=== PATIENT | female | born 1985 | race African-American/Black ===

== ENCOUNTER 2016-10-26 06:42 | Emergency (ER) | payer MEDICAID ==
[~2016-10-26] VITALS: Ht 165.1 cm; Wt 70.0 kg
[~2016-10-26 06:42] MED LIST: NAPR-576 PO; PHEN1.4%S MT
[2016-10-26 06:45] VITALS: BP 116/59; PULSE 88; RESP 18; TEMP 98; O2SAT 99
--- NOTE | 2016-10-26 07:56 | PD ---
HPI Chief Complaint: Cold / Flu Symptoms Time Seen by Provider: 07:56 Travel History International Travel<30 days: No Contact w/Intl Traveler<30days: No Traveled to known affect area: No History of Present Illness HPI 31-year-old female presents to the emergency department for evaluation of sore throat and cough for 2 days. Patient also complains of subjective fevers. States that she has painful swallowing. States she also has a headache. Denies any chest pain, shortness of breath, nausea, vomiting, abdominal pain, ear pain, eye redness or drainage. Denies but reports last menstrual period was one month ago and was light. Denies any recent travel or sick contacts. She has been taking Sudafed and DayQuil with minimal improvement of symptoms. No other complaints. PFSH Past Medical History Diminished Hearing: No Immunizations Current: Yes ?: Not LMP: 09/27/16 : 7 Para: 6 Miscarriage: 1 : 0 Social History Alcohol Use: No Tobacco Use: No Substance Use: No (DENIED) Allergies-Medications (Allergen,Severity, Reaction): Coded Allergies: No Known Allergies (Verified , 05/20/14) Reported Meds & Prescriptions Reported Meds & Active Scripts Active No Active Prescriptions or Reported Medications Review of Systems Except as stated in HPI: all other systems reviewed are Neg Physical Exam Narrative GENERAL: Well-nourished and well-developed pleasant female patient in no acute distress who is nontoxic appearing. SKIN: Warm and dry. HEAD: Normocephalic and atraumatic. EYES: No injection, drainage, or hyphema noted. PERRLA. EOMI. ENT: No nasal drainage noted. Oropharynx is mildly erythematous, no tonsillar edema or exudates. TMs are normal with good landmarks. NECK: Supple and the trachea is midline. Positive anterior cervical lymphadenopathy. CARDIOVASCULAR: Regular rate and rhythm. RESPIRATORY: Breath sounds are equal bilaterally with no accessory muscle use, wheezing, rhonchi, or crackles. ABDOMEN: Abdomen is soft, nontender, nondistended. MUSCULOSKELETAL: No obvious deformities, swelling, cyanosis, or ecchymosis is present throughout the upper and lower extremities. Patient has full range of motion without any signs of neurovascular compromise. NEUROLOGICAL: Awake, alert, and oriented. Normal speech and gait. Cranial nerves are grossly intact. Data Data Last Documented VS Vital Signs Date Time Temp Pulse Resp B/P Pulse Ox O2 Delivery O2 Flow Rate FiO2 10/26/16 06:45 98.0 88 18 116/59 99 Room Air Orders Group A Rapid Strep Screen (10/26/16 07:30) Influenzae A/B Antigen (10/26/16 07:30) Ed Urine Pregnancytest Poc (10/26/16 07:57) Strep Culture (Group A) (10/26/16 07:38) MDM Medical Decision Making Medical Screen Exam Complete: Yes Emergency Medical Condition: Yes Differential Diagnosis URI versus pharyngitis versus viral versus strep versus influenza Narrative Course 31-year-old female presents to the emergency department for evaluation of sore throat and cough. Patient is afebrile, vital signs are stable. She has mild erythema of her throat but otherwise physical examination is unremarkable. She appears well overall. Strep and influenza swabs have been ordered and are pending. Influenza swab is negative. Strep swab is negative. ED urine test is positive. Discussed all results with the patient and told her that she is . She reports she had an IUD in for 5 years and had it taken out in July 2016, since then has been on oral control pills but admits she sometimes forgets to take them. She states she has been having periods monthly but they have been light so this is likely early . Her blood type is A+ and she does not require [place]. She's having no abdominal pain. I did discuss with her that should she develop any abdominal pain, pelvic pain or bleeding to come back to the emergency department. Discussed what medication she can take for her viral URI. Patient verbalizes understanding and agreement with treatment plan. Diagnosis Primary Impression: URI (upper respiratory infection) Qualified Code: J06.9 - Upper respiratory tract infection, unspecified type Additional Impression: Qualified Code: Z3A.49 - More than 42 weeks gestation of Referrals: Nurse Recruiter Primary Care Physician Patient Instructions: General Instructions Additional Instructions: Drink plenty of fluids. Take [id number] Tylenol and Claritin as directed on the box. Follow-up with your Primary Care Physician and Nurse Recruiter. Return to the ED for any acute worsening of symptoms. Med/Other Pt SpecificInfo: No Change to Meds Scripts No Active Prescriptions or Reported Meds Disposition: 01 DISCHARGE HOME Condition: Stable Maryan Tello Oct 26, 2016 07:56
== END 2016-10-26 08:34 | disposition home or self-care (01) ==
LOC: NEPB 06:42
DX: O26.91 Pregnancy related conditions, unspecified, first trimester (principal); J06.9 Acute upper respiratory infection, unspecified; R51 Headache; R13.10 Dysphagia, unspecified; Z79.3 Long term (current) use of hormonal contraceptives
CPT/HCPCS: 84703; 87081; 87804; 87880; 99284